=== PATIENT | female | born 1985 | race Caucasian/White ===

== ENCOUNTER 2016-12-14 21:15 | Emergency (ER) | payer OTHER ==
[~2016-12-14 21:15] MED LIST: DESYREL50 MG PO; FLAGYL PO; GABAPENTIN300 MG PO; MOTRIN600 M2 PO; NEURONTIN600 MG DOB; PANTOPRAZOLE SO40 MG PO; PHENERGAN25 M1 PR; PROBIOTIC250 MG PO; PROZAC40 MG DOB; PROZAC40 MG PO; REQUIP1 MG PO; SEROQUEL25 MG PO; TYLENOL W-CODEI1 TAB PO; WELLBUTRIN SR150 MG PO; ZOFRAN PO
== END 2016-12-14 22:40 | disposition home or self-care (01) ==
LOC: CED 21:15
DX: L03.114 Cellulitis of left upper limb (principal); L02.414 Cutaneous abscess of left upper limb; F17.200 Nicotine dependence, unspecified, uncomplicated
CPT/HCPCS: 10060; 87070; 87205; 99283

== ENCOUNTER 2017-04-23 14:03 | Inpatient (IN) | payer OTHER ==
[~2017-04-23] VITALS: Ht 180.3 cm; Wt 101.2 kg
--- NOTE | ~2017-04-23 | OR ---
Unit #: [id number] #: [id number] Patient: JAMIL URENA [id number] [address] [place], [place] [address] [id number] I MR#: [id number] NAME: JAMIL URENA ROOM: 216 Date of Procedure: 04/26/2017 Admission Date: 04/23/2017 Surgeon: Saúl Jaimes M.D. : 1985 Attending Physician: Karena Mendez M.D. Referring Physician: Karena Mendez M.D. Primary Care Physician: Karena Mendez M.D. OPERATIVE REPORT PREOPERATIVE DIAGNOSIS Abscess left forearm. POSTOPERATIVE DIAGNOSIS Abscess left forearm. PROCEDURE PERFORMED Incision and drainage under local anesthetic. INDICATIONS FOR PROCEDURE A 31-year-old female with a history of IV drug abuse presented with a small fluctuant area in the medial aspect of the left forearm. DESCRIPTION OF PROCEDURE The patient was seen at the bedside. The area was cleaned with alcohol and then 1% lidocaine was used to create a field block. An 11 blade was used to make a stab incision and I was able to drain all the purulent drainage. The wound was clean and then dry sterile dressing was placed. Neosporin and bandages have been ordered for ongoing care. The patient tolerated the procedure well. Dictated by... Destinee Gutierrez/casi TD: 04/26/2017 08:10 JOB #: [id number] OPERATIVE REPORT Page 1 of 1 X Saúl Jaimes MD PROCEDURE OPERATIVE NOTE
--- NOTE | ~2017-04-23 | CO ---
Unit #: [id number] #: [id number] Patient: TEODORA URENA [id number] [facility]. [place], [place] [address] [id number] I MR#: [id number] NAME: TEODORA URENA ROOM: 216 Age: 31 Sex: F Admission Date: 04/23/2017 : 1985 Attending Physician: Karena Mendez M.D. Primary Care Physician: Karena Mendez M.D. Consultation Date: 04/24/2017 CONSULTATION REPORT REASON FOR CONSULTATION Anxiety, depression, substance abuse, on Suboxone. HISTORY OF PRESENT ILLNESS Ms. Teodora Urena is a 31-year-old white female, seen in room 216, bed 1, on 04/24/[address] [facility]. The patient was dressed casually, tall, well built. The patient reported that she has a longstanding history of depression, currently on Prozac high dosage, but still feeling sad, depressed, having problem with anxiety and trouble sleeping. The patient also reported abusing Suboxone. The patient denied any suicidal or homicidal ideation. Denied any psychotic symptom. The patient reports that she needs treatment for substance abuse after she is discharged from here. The patient's vital signs; temperature 99.1, pulse 75, respirations 18, blood pressure 129/71, and oxygen saturation 100%. PAST PSYCHIATRIC HISTORY Remarkable for history of depression, substance abuse, anxiety, history of outpatient treatment. No history of any suicide attempt. MEDICAL HISTORY The patient has a history of anxiety, depression, pneumonia. MEDICATION HISTORY The patient is currently on Prozac 80 mg daily, Neurontin 600 mg t.i.d., and Desyrel 100 mg at bedtime. FAMILY HISTORY AND SOCIAL HISTORY The patient reports that she has a good support system. No history of abuse. History of substance abuse as mentioned above. REVIEW OF SYSTEMS Complete review of systems is unremarkable. MENTAL STATUS EXAMINATION For the patient's vital signs please see above. General appearance; the patient is tall, well built, dressed casually. Attention span and concentration, fair. Speech, regular rate and coherent. Oriented in time, place, and person. Mood and affect, sad and dysphoric. Thought process, coherent. Thought content, the patient denied any thoughts of harming self or others, but sad, depressed, anxious. Denied any hallucination. Recent and remote memory, fair. Language, intact. Fund of knowledge, fair. Insight and judgment, fair to slightly impaired. Unit #: [id number] #: [id number] Patient: TEODORA URENA DIAGNOSES Psychiatric: Opioid use disorder, severe, F11.20; major depressive disorder, recurrent, severe, F33.2; anxiety disorder, not otherwise specified, F40.01. Secondary diagnosis: Deferred. Medical diagnosis: Please refer to H and P. Stressors: Psychosocial stressor. ASSESSMENT/PLAN 1. Supportive psychotherapy and psychoeducation were provided to the patient. 2. Educated about benefits and side effects of medication and course and prognosis of illness. 3. Advised to continue with current medications; Prozac, Desyrel, Neurontin, and add Zyprexa 5 mg at bedtime and add Vistaril 25 mg t.i.d. We will continue to follow. Please feel free to call if any questions; telephone #[phone]. Recommending the patient to follow up in CD-IOP program upon discharge and also given crisis line #[phone]. Dictated by... Destinee Pugh/casi TD: 04/25/2017 06:37 JOB #: [id number] CONSULTATION REPORT Page 1 of 1 X Shukri Chau MD X CONSULTATION REPORT
--- NOTE | ~2017-04-23 | CO ---
Unit #: [id number] #: [id number] Patient: TEODORA URENA [id number] [address] [place], [place] [address] [id number] I MR#: [id number] NAME: TEODORA URENA ROOM: 216 Age: 31 Sex: F Admission Date: 04/23/2017 : 1985 Attending Physician: Karena Mendez M.D. Primary Care Physician: Karena Mendez M.D. Consultation Date: 04/26/2017 CONSULTATION REPORT REASON FOR CONSULTATION Followup. DISCUSSION Ms. Teodora Urena is a 31-year-old white female, seen in room 216, bed 1 on 04/26/2017. The patient dressed casually, lying comfortably in bed. The patient had an incision and drainage done to right upper extremity abscess in [facility] several days ago. The patient reports that she is still feeling somewhat anxious, nervous, sad, depressed, withdrawn today. The patient reports medication is helping. Denied any suicidal or homicidal ideation. The patient's vital signs; temperature 97.4, pulse 69, respirations 18, blood pressure 116/56, and oxygen saturation 100%. The patient is currently on Augmentin, Vibramycin, Zyprexa, Vistaril, Prozac, Neurontin, Desyrel. No side effects from medication. REVIEW OF SYSTEMS Complete review of systems is unremarkable. MENTAL STATUS EXAMINATION The patient dressed casually, lying comfortably in bed. Attention span and concentration, fair. Speech, regular rate and coherent. Oriented in time, place, and person. Mood and affect; labile, sad, dysphoric. Thought process, coherent. Thought content, the patient denied any thoughts of harming self or others or any psychotic symptom. Recent and remote memory, fair. Language, intact. Fund of knowledge, fair. Insight and judgment, fair to slightly impaired. DIAGNOSES Psychiatric: Opioid use disorder, severe, F11.20; major depressive disorder, recurrent, severe, F33.2. ASSESSMENT AND PLAN 1. Supportive psychotherapy and psychoeducation provided to the patient. 2. Educated about benefits and side effects of medication and course and prognosis of illness. 3. Advised to continue with current medication. If needed, consider further adjustment of medication. Please feel free to call if any questions, telephone #[phone]. Dictated by... Desitnee Pugh/casi Unit #: [id number] #: [id number] Patient: TEODORA URENA TD: 04/26/2017 13:52 JOB #: [id number] CONSULTATION REPORT Page 1 of 1 X Shukri Chau MD X CONSULTATION REPORT
--- NOTE | ~2017-04-23 | CO ---
Unit #: [id number] #: [id number] Patient: JAMIL URENA [id number] [address] [place], [place] [address] [id number] I MR#: [id number] NAME: JAMIL URENA ROOM: 216 Age: 31 Sex: F Admission Date: 04/23/2017 : 1985 Attending Physician: Karena Mendez M.D. Primary Care Physician: Karena Mendez M.D. Consultation Date: 04/23/2017 CONSULTATION REPORT REASON FOR CONSULTATION Right upper extremity abscess. HISTORY OF PRESENT ILLNESS The patient is a 28-year-old female with past medical history fairly unremarkable, admitted from Dr. Mendez's office. The patient went for followup after hospital visit for right upper extremity pain, swelling, and redness, found to have an abscess, cellulitis, was I and D'd at [facility]. She was started on Bactrim and Keflex. Because of non-resolution, she is admitted. Denies any cough, congestion, nausea, vomiting, diarrhea, chest pain, shortness of breath, headaches, or dizziness. PAST MEDICAL HISTORY As noted above. SOCIAL HISTORY Noncontributory. Denies IV drug use. FAMILY HISTORY Noncontributory. ALLERGIES No known drug allergies. CURRENT MEDICATIONS List reviewed. Antibiotics include vancomycin since admission. Outpatient, she got Bactrim and Keflex. PHYSICAL EXAMINATION VITAL SIGNS: Afebrile. Vital signs stable. HEENT: Unremarkable. NECK: Supple. CHEST: Clear to auscultation. HEART: Normal S1, S2. ABDOMEN: Soft, nontender. EXTREMITIES: Show right upper extremity upper arm has an evidence of I and D'd with packing with surrounding erythema and tenderness. No active bleeding or drainage. Has an area on the left upper extremity below the elbow on the ventral aspect also tender, warm, erythematous. No fluctuation or skin breakdown at that point. DIAGNOSTIC STUDIES Unit #: [id number] #: [id number] Patient: JAMIL URENA LABORATORY RESULTS: No labs at this time. Admission labs are pending. ASSESSMENT 1. Right upper extremity cellulitis and abscess. 2. Possible evolving left upper extremity cellulitis and abscess. PLAN Continue with vancomycin and get records from [facility]. Follow up on the labs. Further recommendation depending upon the course. Local wound care per wound care service. I would like to thank Dr. Mendez for requesting us to participate in the care of this patient. We will follow this patient along with you. Dictated by... Destinee Hobbs TD: 04/25/2017 12:53 JOB #: [id number] CONSULTATION REPORT Page 1 of 1 X Rustam Carmona MD X CONSULTATION REPORT
--- NOTE | ~2017-04-23 | DS ---
Unit #: [id number] #: [id number] Patient: JAMIL URENA [id number] [address] [place], [place] [address] [id number] I MR#: [id number] NAME: JAMIL URENA ROOM: 216 Age: 31 Sex: F Admission Date: 04/23/2017 : 1985 Discharge Date: 04/26/2017 Attending Physician: Karena Mendez M.D. Referring Physician: Karena Mendez M.D. Primary Care Physician: Karena Mendez M.D. DISCHARGE SUMMARY FINAL DIAGNOSES 1. Right upper extremity and left upper extremity abscess, status post incision and drainage. 2. History of IV drug abuse. 3. Tobacco abuse. 4. History of depression. DISCHARGE MEDICATIONS , doxycycline 100 mg p.o. q.12, Augmentin 875 mg p.o. q.12, continue Suboxone, Desyrel 100 mg q.h.s., Prozac 80 mg daily, Neurontin 600 mg t.i.d., Zyprexa 5 mg q.h.s. if okay with psychiatrist. CONSULTATION IN THE HOSPITAL 1. Infectious Disease, Dr. Tello. 2. Dr. Shukri Chau, from [facility]. 3. Dr. Saúl Jaimes from [facility]. DIAGNOSTIC STUDIES LABORATORY RESULTS: Lab workup on discharge; sodium 138, potassium 3.8, chloride 110, BUN 15, creatinine 0.8. Wound culture, no organism. WBC 5.8, hemoglobin 12.1, hematocrit 36.7, and platelet count of 263. HIV screen was done, which was negative. Blood cultures were negative. HOSPITAL COURSE Ms. Urena was admitted to the hospital for nonhealing right upper extremity abscess and developing new left upper extremity abscess. The patient was admitted to MedSurg unit at [facility]. IV antibiotics including Zosyn and vancomycin were continued. Infectious Disease was consulted. LSA was consulted and the patient had I and D done on the left side. Treatment is being continued. The patient is stable and is being discharged home as antibiotic has been changed to p.o. The patient will need to continue to address right upper extremity with strength Dakin's wet to dry t.i.d. and clean left forearm wound with soap and water. Dress with Neosporin and bandage b.i.d. until healed. Vital signs on discharge, blood pressure 116/56, respirations 18, pulse 69, temperature 97.4. Chest has fair air entry. No additional sounds. Awake, alert. No fever. Status post I and D on the left side. Dressing is present on the right. DISCHARGE INSTRUCTIONS The patient is being discharged home in stable condition. Follow up with primary care provider in 1 week. Unit #: [id number] #: [id number] Patient: JAMIL URENA Dictated by... Destinee Peacock/casi TD: 04/29/2017 03:30 JOB #: [id number] DISCHARGE SUMMARY Page 1 of 1 X Karena Mendez MD X DISCHARGE SUMMARY
--- NOTE | ~2017-04-23 | HP ---
Unit #: [id number] #: [id number] Patient: JAMIL URENA [id number] [facility]. [place], [place] [address] [id number] I MR#: [id number] NAME: JAMIL URENA ROOM: 216 Age: 31 Sex: F Admission Date: 04/23/2017 : 1985 Attending Physician: Karena Mendez M.D. Referring Physician: Karena Mendez M.D. Primary Care Physician: Karena Mendez M.D. HISTORY AND PHYSICAL CHIEF COMPLAINT Right upper arm tenderness, pain, and abscess. HISTORY OF PRESENT ILLNESS Ms. Jamil Urena is a 31-year-old female who has history of IV drug abuse and polysubstance abuse, went to [facility] two days ago with right upper extremity pain and tenderness. Patient had I and D done and was placed on p.o. antibiotics. The patient was seen in the office with worsening of swelling, worsening of pain, and worsening of redness. Patient has failed p.o. antibiotic, was admitted to med/surg unit at [facility]. According to patient, she is still having severe pain. There is not much drainage. She does not have any tingling or numbness of the hand. There are no fever, chills, or rigors. This is mostly on the right side. There is a small area of redness and density on the left side also. Patient admits to using IV drugs on the left side, according to her on multiple sites. On the left side, she used but not on the right side. She does complain of some sweating. She complains of shortness of breath. No complaint of chest pain. No complaint of nausea and vomiting. PAST MEDICAL HISTORY 1. History of depression. 2. Tobacco abuse. 3. History of IV drug abuse. 4. History of anxiety. ALLERGIES No known drug allergies. FAMILY HISTORY Nothing significant. HOME MEDICATIONS 1. Suboxone 8 mg one tablet daily. 2. Trazodone 100 mg at bedtime. 3. Neurontin 600 mg three times a day. 4. Prozac 80 mg daily. SOCIAL HISTORY The patient is a smoker. Smokes half to one pack per day. She does have a history of polysubstance abuse and IV drug abuse. PAST SURGICAL HISTORY History of I and D. Unit #: [id number] #: [id number] Patient: JAMIL URENA REVIEW OF SYSTEMS As per history of presenting illness. PHYSICAL EXAMINATION GENERAL: Patient is lying in bed in no respiratory distress. VITAL SIGNS: Blood pressure is 129/71, respiratory rate 18, pulse 75, temperature 99.1, oxygen saturation 100%. HEENT: Head is normocephalic. Eye movements are normal. NECK: Supple. CHEST: Fair air entry. No additional sounds. CARDIOVASCULAR: S1, S2 positive. Regular rhythm. ABDOMEN: Soft. EXTREMITIES: Negative edema. SKIN: On the right upper extremity, there is redness, fluctuation. Tenderness is present and increased temperature on touch. On the left side multiple needle smith are seen and there is a very small access also seen on the left forearm. CENTRAL NERVOUS SYSTEM: Patient is awake, alert, oriented x3. No focal neurological deficit. DIAGNOSTIC STUDIES LABORATORY: WBC 5.8, hemoglobin 12.1, hematocrit 36.7, platelet count 263,000. Sodium 135, potassium 3.7, chloride 107, BUN 12, creatinine 0.8. Liver enzymes are stable. ASSESSMENT AND PLAN Patient is being admitted to med/surg unit with: 1. Right upper extremity abscess, status post incision and drainage at [facility]. Cultures are still pending. Infectious disease has been consulted. Patient is being started on IV Zosyn 3.375 g q.6 hourly and also IV vancomycin. HIV will be done. 2. Patient does have right upper extremity cellulitis: Antibiotic as above. 3. History of depression/anxiety: Dr. Chau from psych services will be consulted. Home medications have been reviewed and started. 4. Tobacco abuse: Nicotine patch is being started. Counseling done at length. Dictated by Destinee Peacock TD: 04/24/2017 16:31 JOB #: [id number] Unit #: [id number] #: [id number] Patient: JAMIL URENA HISTORY AND PHYSICAL Page 1 of 1 X Karena Mendez MD X HISTORY AND PHYSICAL
--- NOTE | ~2017-04-23 | CO ---
Unit #: [id number] #: [id number] Patient: JAMIL URENA [id number] [address] [place], [place] [address] [id number] I MR#: [id number] NAME: JAMIL URENA ROOM: 216 Age: 31 Sex: F Admission Date: 04/23/2017 : 1985 Attending Physician: Karena Mendez M.D. Primary Care Physician: Karena Mendez M.D. Consultation Date: 04/25/2017 CONSULTATION REPORT HISTORY OF PRESENT ILLNESS Ms. Urena is a 31-year-old female, who underwent incision and drainage of right upper extremity abscess at [facility] several days ago secondary to an attempt of methamphetamine injection about a week ago. She was drained and sent out and presented to Dr. Mendez with pain and cellulitis. She was admitted and started on vancomycin and Zosyn. We were asked to see the patient to see if she need any further drainage. On local examination, the cellulitis is resolving and the wound is clean and I could not express any more purulent drainage. However, in assessing the patient on the left forearm, she has an erythematous plaque like area that could be developing abscess; however, it is currently not fluctuant. PAST MEDICAL HISTORY Polysubstance abuse, IV drug abuse, tobacco abuse, anxiety, depression. ALLERGIES No allergies to medication. HOME MEDICATIONS Include Suboxone, trazodone, Neurontin, and Prozac. FAMILY HISTORY She is unaware of any chronic or inheritable diseases. SOCIAL HISTORY She does not work. 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 REVIEW OF SYSTEMS Otherwise unremarkable. PHYSICAL EXAMINATION VITAL SIGNS: Temperature is 98.1, pulse 74, respirations 16, blood pressure 113/57. GENERAL: Awake, alert, and oriented. HEENT: Unremarkable. CARDIAC: Regular rhythm. LUNGS: Clear. ABDOMEN: Soft. EXTREMITIES: Right upper extremity; in the anterior medial aspect of the upper arm, she has about 7 to 8 mm I and D site. There is granulation tissue. There was no significant cellulitis. I cannot express any purulent drainage and she does have some granulation tissue. There is induration which is tender, but not exquisitely painful. On the left forearm, medially she has about a 2 cm area of erythema that is not Unit #: [id number] #: [id number] Patient: ROMEL,JAMIL NEVA fluctuant and it does not appear to have any pointing. This could be a developing subcutaneous abscess, but currently does not have any fluctuance. NEUROLOGIC: Grossly intact. DIAGNOSTIC STUDIES LABORATORY RESULTS: Chemistries are normal. White count 5800, hemoglobin 12.1, platelets 263,000. Serology HIV is nonreactive. Urinalysis is not done. Blood and wound cultures both showed no growth. ASSESSMENT AND PLAN The patient who has had an I and D of an abscess of the right upper extremity shows no evidence of any residual abscess and does not need any further surgical intervention. However, on her left forearm, there is an erythematous area that could be a developing abscess, so we will watch and see how she responds to antibiotics. Dictated by... Destinee Gutierrez/casi TD: 04/25/2017 16:26 JOB #: [id number] CONSULTATION REPORT Page 1 of 1 X Saúl Jaimes MD X CONSULTATION REPORT
--- NOTE | ~2017-04-23 | CR63 ---
[facility] A Service of [facility] RADIOLOGY TEXT RESULTS PATIENT: JAMIL URENA LOCATION: A 216-01 : [birth year] UNIT #: [id number] AGE: [address]: Karena Mendez MD SEX: F ORDER DR: [id number] [facility] [address] [facility]. [place], [place] [address] [id number] MR#: [id number] Acc #: [id number] NAME: JAMIL URENA : 1985 SEX: F STUDY DATE/TIME: 04/24/2017 17:11 UNIT: [facility] ROOM: [facility] STUDY DESCRIPTION: CR Chest 2 View Attending Physician: Karena Mendez M.D. Referring Physician: Karena Mendez M.D. Ordering Physician: Karena Mendez M.D. Primary Care Physician: Karena Mendez M.D. MEDICAL IMAGING REPORT This report is preliminary unless electronic signature is present EXAMINATION PA and lateral chest. DATE 04/24/2017 HISTORY 31-year-old female with congestion, chest pain with deep inspiration. Symptoms present for 2 weeks. 10-year smoking history. COMPARISON PA and lateral chest, 06/12/2014. FINDINGS There is linear scarring or subsegmental atelectasis in the left lower lobe and within the right costophrenic angle. No consolidation. No pleural effusion. Heart size is stable and within normal limits. No acute osseous abnormalities. IMPRESSION 1. Mild linear scarring versus linear subsegmental atelectasis in the right costophrenic angle and left lower lobe. No lung consolidations. Dictated by... Lupe Mcneal M.D. THIS IS AN ELECTRONICALLY VERIFIED REPORT Lupe Mcneal M.D. at 04/25/2017 1:11 PM KYLIE/jean carlos TD: 04/25/2017 12:42 JOB #: [id number] [facility] A Service of [facility] RADIOLOGY TEXT RESULTS PATIENT: JAMIL URENA LOCATION: [facility] 216-01 : [birth year] UNIT #: [id number] AGE: [address]: Karena Mendez MD SEX: F ORDER DR: MEDICAL IMAGING REPORT Page 1 of 1 COPY
[2017-04-23] MEDS ORDERED: SUBOXONE 8 MG-1 EAC1 PO (14:30)
[2017-04-23] MEDS ORDERED: DESYREL100 MG PO (14:30)
[2017-04-23] MEDS ORDERED: PROZAC PO (14:31)
[2017-04-23] MEDS ORDERED: NEURONTIN600 MG PO (14:31)
[2017-04-23 16:12] LABS: HEMATOCRIT 36.7 % (35.0-45.0); HEMOGLOBIN 12.1 gm/dL (12.0-16.0); MEAN CELL VOLUME 87.5 FL (83-96); MEAN CORPUSCULAR HEMOGLOBIN 28.8 PG (28-34); MEAN PLATELET VOLUME 8.5 FL (6.5-11.5); RED BLOOD COUNT 4.2 X10e (3.90-5.30); RED CELL DISTRIBUTION WIDTH 13.7 % (11.0-15.5); WHITE BLOOD COUNT 5.8 X10e3 (4.0-10.5)
[2017-04-23 16:37] LABS: ALBUMIN SERUM 3.5 g/dL (3.5-5.0); BILIRUBIN,TOTAL 0.4 mg/dL (0.2-2.0); CALCIUM SERUM 8.6 mg/dL (8.4-10.2); CREATININE SERUM 0.8 mg/dL (0.6-1.4); POTASSIUM 3.7 mmol/L (3.5-5.1); PROTEIN TOTAL SERUM 7.2 g/dL (6.0-8.3)
[2017-04-24 08:01] LABS: BUN/CREATININE RATIO 13.75; CALCIUM SERUM 8.4 mg/dL (8.4-10.2); CREATININE SERUM 0.8 mg/dL (0.6-1.4); POTASSIUM 3.6 mmol/L (3.5-5.1)
[2017-04-26 07:41] LABS: BUN/CREATININE RATIO 18.75; CALCIUM SERUM 8.5 mg/dL (8.4-10.2); CREATININE SERUM 0.8 mg/dL (0.6-1.4); POTASSIUM 3.8 mmol/L (3.5-5.1)
[2017-04-26] MEDS ORDERED: ZYPREXA PO (13:18)
[2017-04-26] MEDS ORDERED: MAPAP325 M1 PO (13:19)
[2017-04-26] MEDS ORDERED: AUGMENTIN PO (13:19)
[2017-04-26] MEDS ORDERED: DOXYCYCLINE HY100 M4 PO (13:20)
== END 2017-04-26 13:57 | disposition home or self-care (01) | DRG 580 ==
LOC: C2A 14:03
PROVIDERS: Physician Assistant Medical
PROC: 05HC33Z Insertion of Infusion Device into Left Basilic Vein, Percutaneous Approach (ICD-10-PCS; 2017-04-23)
PROC: B54NZZA Ultrasonography of Left Upper Extremity Veins, Guidance (ICD-10-PCS; 2017-04-23)
PROC: 0J9H0ZZ Drainage of Left Lower Arm Subcutaneous Tissue and Fascia, Open Approach (ICD-10-PCS; principal; 2017-04-26)
DX: L02.414 Cutaneous abscess of left upper limb (principal); F33.2 Major depressive disorder, recurrent severe without psychotic features; F11.20 Opioid dependence, uncomplicated; L02.413 Cutaneous abscess of right upper limb; F41.9 Anxiety disorder, unspecified; F17.210 Nicotine dependence, cigarettes, uncomplicated; F19.10 Other psychoactive substance abuse, uncomplicated; L03.113 Cellulitis of right upper limb
CPT/HCPCS: 71020; 80048; 80053; 80202; 85027; 87040; 87070; 87205; 87806; J2543; J3370